=== PATIENT | female | born 1995 | race African-American/Black ===

== ENCOUNTER 2018-02-06 07:06 | Emergency (ER) | payer SELFPAY ==
[~2018-02-06] VITALS: Ht 162.6 cm; Wt 86.0 kg
[2018-02-06] MEDS ORDERED: LIDOCAINE HCL 1% 20ML VIAL (Pyxis) INJ INFIL ONE (10:00)
[2018-02-06] MEDS ORDERED: IBUPROFEN 600MG TABLET PO ONE (10:00)
[2018-02-06] MEDS ORDERED: LIDOCAINE HCL/PF 1% 10 MG/ML 5ML VIAL IJ ONE (10:15)
[2018-02-06 10:32] VITALS: BP 131/57
[2018-02-06] MEDS ORDERED: BACITRACIN ZINC OINT UDPKT TOP ONE (11:00)
== END 2018-02-06 11:07 | disposition home or self-care (01) ==
LOC: ER 08:18
DX: L60.0 Ingrowing nail (principal)
CPT/HCPCS: 11750; 81025; 99283; J3490